=== PATIENT | male | born 1970 | race African-American/Black ===

== ENCOUNTER 2023-05-07 04:22 | Emergency (ER) | payer SELFPAY ==
[2023-05-07] MEDS ORDERED: Acetaminophen 500 MG TAB ONE (05:46)
== END 2023-05-07 05:50 | disposition home or self-care (01) ==
LOC: CSHERS 04:22
DX: S01.01XA Laceration without foreign body of scalp, initial encounter (principal); Y04.0XXA Assault by unarmed brawl or fight, initial encounter
CPT/HCPCS: 12011; 70450; 72125